=== PATIENT | male | born 1935 | race Caucasian/White ===

== ENCOUNTER → 2016-10-14 | Outpatient (CLI) | payer MEDICARE, OTHER ==
--- NOTE | 2016-10-14 09:58 | REP ---
Clinical: COPD. Technique: PA and lateral. Comparison: 03/02/2014. Findings: Mediastinum and cardiac silhouette are normal. Lung garcia demonstrate diffuse chronic interstitial changes consistent with COPD. By apical and left basilar scarring remains stable. No acute consolidation, effusion, or pneumothorax. Skeletal structures demonstrate osteopenia and degenerative changes. Impression: Chronic stable changes. No acute cardiopulmonary process appreciated. Signed by Omar Morrell MD 10/14/2016 09:50 A
== END ==
LOC: M SMT 09:13
PROVIDERS: ATTEND Internal Medicine Pulmonary Disease
DX: J44.9 Chronic obstructive pulmonary disease, unspecified (principal)

== ENCOUNTER → 2017-12-16 | Outpatient (CLI) | payer MEDICARE, OTHER ==
[~2017-12-16] MED LIST: GASTROGRAFIN SOLUTION 30ML (Q9963) As Ordered; ISOVUE-370 76% 100ML VIAL (Q9967) As Ordered
== END ==
LOC: M RAD 11:09
DX: K56.600 Partial intestinal obstruction, unspecified as to cause (principal)
CPT/HCPCS: Q9963

== ENCOUNTER → 2018-01-14 | Outpatient (CLI) | payer MEDICARE, OTHER | LOC: M EKG 08:30 | DX: Z01.818 Encounter for other preprocedural examination (principal); J44.9 Chronic obstructive pulmonary disease, unspecified; K21.9 Gastro-esophageal reflux disease without esophagitis; E78.00 Pure hypercholesterolemia, unspecified; R00.1 Bradycardia, unspecified | CPT/HCPCS: 93005 ==

== ENCOUNTER 2018-01-18 12:03 | Day surgery (SDC) | payer MEDICARE, OTHER ==
[~2018-01-18 12:03] MED LIST changes: -GASTROGRAFIN SOLUTION 30ML (Q9963) As Ordered; -ISOVUE-370 76% 100ML VIAL (Q9967) As Ordered; +LIDOCAINE 1% MDV 20ML VIAL SQ
[2018-01-18] MEDS ORDERED: LR 1,000 ML IV ×2 (13:00→18:30)
[2018-01-18] MEDS ORDERED: ROCURONIUM BROMIDE 50 MG/5 ML VIAL As Ordered ×2 (13:44→16:54)
[2018-01-18] MEDS ORDERED: LIDOCAINE 2% INJ 100 MG/5 ML SDV (FOR ANES.) As Ordered (13:44)
[2018-01-18] MEDS ORDERED: fentaNYL 100 MCG/2 ML INJECTION (J3010) As Ordered ×3 (13:44→18:04)
[2018-01-18] MEDS ORDERED: PROPOFOL 200 MG/20 ML VIAL As Ordered (13:44)
[2018-01-18] MEDS ORDERED: ceFAZolin 2 GM/D5W 50 ML IV BAG (J0690 PER 500MG) As Ordered (15:22)
[2018-01-18] MEDS: BUPIVACAINE/EPIN 0.25% 30 ML VIAL As Ordered (17:30)
[2018-01-18] MEDS ORDERED: ONDANSETRON 4MG/2ML VIAL (J2405) As Ordered (17:46)
[2018-01-18] MEDS: fentaNYL 100 MCG/2 ML INJECTION (J3010) IV ×4 (18:05→18:21)
[2018-01-18] MEDS ORDERED: ONDANSETRON 4MG/2ML VIAL (J2405) IV (18:30)
[2018-01-18] MEDS ORDERED: NORCO, ANEXSIA 5/325MG TABLET (HYDROcodone/ACETAMINOPHEN) PO (18:30)
[2018-01-18] MEDS: NORCO, ANEXSIA 5/325MG TABLET (HYDROcodone/ACETAMINOPHEN) PO (18:43)
== END 2018-01-18 20:16 | disposition home or self-care (01) ==
LOC: M SDC 12:03
DX: K40.20 Bilateral inguinal hernia, without obstruction or gangrene, not specified as recurrent (principal); I10 Essential (primary) hypertension; E78.5 Hyperlipidemia, unspecified; K21.9 Gastro-esophageal reflux disease without esophagitis; J44.9 Chronic obstructive pulmonary disease, unspecified; Z87.891 Personal history of nicotine dependence; Z79.82 Long term (current) use of aspirin; Z79.899 Other long term (current) drug therapy
CPT/HCPCS: 49650

== ENCOUNTER → 2018-05-13 | Outpatient (CLI) | payer MEDICARE, OTHER ==
[~2018-05-13] MED LIST changes: +ADVA115A INH; +ASPI81TA85 PO; +CETI10CH PO; +CLAR10CA3 PO; +DOCU100C16 PO; +EZET10TA PO; +FLOM0.4C39 PO; +FLUTISP NARES; +LEVO25TA5 PO; -LIDOCAINE 1% MDV 20ML VIAL SQ; +LISI10TA4 PO; +LUTE6TAB2 PO; +MAGN400C2 PO; +PRESCAP PO; +TYLE325C PO; +VENTAER INH; +VITA-176 PO; +[UNRECOGNIZED DRUG - CODE] OU
--- NOTE | 2018-05-13 09:32 | REP ---
Chest two views HISTORY: COPD Comparison: 10/14/2016 A diffuse increase in interstitial markings is present in the lungs consistent with chronic interstitial fibrosis. Scarring is present in the lung apices and left lower lobe.. Bilateral apical pleural thickening is present. The heart is normal in size. The pulmonary vasculature is normal in appearance. The bony structure is intact. IMPRESSION: Chronic interstitial fibrosis. Electronically Signed by Mj Lazcano MD 05/13/2018 09:23 A
== END ==
LOC: M SMT 08:59
PROVIDERS: ATTEND Internal Medicine Pulmonary Disease
DX: J44.9 Chronic obstructive pulmonary disease, unspecified (principal); J84.10 Pulmonary fibrosis, unspecified

== ENCOUNTER 2019-07-08 09:35 | Emergency (ER) | payer MEDICARE, OTHER ==
[~2019-07-08] VITALS: Ht 172.7 cm; Wt 70.3 kg
[~2019-07-08 09:35] MED LIST changes: -EZET10TA PO; +EZET10TA21 PO
[2019-07-08] MEDS ORDERED: ALL10TAB29 (10:00)
[2019-07-08] MEDS ORDERED: SYNT75TA (10:00)
[2019-07-08 10:39] LABS: BASO % 0.4 % (0.0-1.0); EOS # 0.1 10^3/uL (0.0-0.5); EOS % 1.2 % (0.0-3.0); HEMATOCRIT 43.7 % (42.0-52.0); HEMOGLOBIN 14.6 g/dl (13.5-17.5); LYMPH # 2.6 10^3/uL (1.5-5.0); LYMPH % 26.3 % (24.0-44.0); MEAN CORPUSCULAR HEMOGLOBIN 27.8 pg (27.0-33.0); MEAN CORPUSCULAR HGB CONC 33.4 g/dl (32.0-36.5); MEAN CORPUSCULAR VOLUME 83.2 fl (80.0-96.0); MONO # 0.6 10^3/uL (0.0-0.8); MONO % 6.4 % (0.0-5.0); NEUTROPHILS # 6.5 10^3/uL (1.5-8.5); NEUTROPHILS % 65.2 % (36.0-66.0); PLATELET COUNT, AUTOMATED 308 10^3/uL (150-450); RED BLOOD COUNT 5.25 10^6/uL (4.30-6.10); WHITE BLOOD COUNT 9.9 10^3/uL (4.0-10.0)
--- NOTE | 2019-07-08 10:50 | REP ---
Clinical: Cough. History of COPD. Technique: PA and lateral. Comparison: 05/13/2018. Findings: Mediastinum and cardiac silhouette are stable. Chronic interstitial changes consistent with COPD along with biapical scarring and bibasilar scarring (left greater than right) are essentially unchanged. No obvious acute consolidation or effusion. Skeletal structures demonstrate age-related osteopenia and degenerative changes. Impression: Chronic changes. No obvious acute consolidation or effusion. Electronically Signed by Omar Morrell MD 07/08/2019 10:41 A
[2019-07-08 11:02] LABS: BLOOD UREA NITROGEN 11 MG/DL (7-18); CALCIUM LEVEL 8.9 MG/DL (8.8-10.2); CARBON DIOXIDE LEVEL 26 MEQ/L (21-32); CHLORIDE LEVEL 105 MEQ/L (98-107); GLOMERULAR FILTRATION RATE > 60.0 (>35); GLUCOSE, FASTING 101 MG/DL (70-100); POTASSIUM SERUM 4.3 MEQ/L (3.5-5.1); SODIUM LEVEL 138 MEQ/L (136-145)
[2019-07-08 11:04] LABS: INFLUENZA A AMPLIFICATION NEGATIVE (NEGATIVE); INFLUENZA B AMPLIFICATION NEGATIVE (NEGATIVE)
[2019-07-08] MEDS ORDERED: MUCI600T31 PO (11:14)
[2019-07-08] MEDS ORDERED: BENZ200C70 PO (11:14)
[2019-07-08 11:23] VITALS: BP 110/57
== END 2019-07-08 11:42 | disposition home or self-care (01) ==
LOC: M ED 09:35
DX: T58.11XA Toxic effect of carbon monoxide from utility gas, accidental (unintentional), initial encounter (principal); Y92.9 Unspecified place or not applicable; Y93.9 Activity, unspecified; J06.9 Acute upper respiratory infection, unspecified; B34.9 Viral infection, unspecified; J44.9 Chronic obstructive pulmonary disease, unspecified; E78.5 Hyperlipidemia, unspecified; N40.0 Benign prostatic hyperplasia without lower urinary tract symptoms; E03.9 Hypothyroidism, unspecified; Z79.82 Long term (current) use of aspirin; Z79.899 Other long term (current) drug therapy; Z88.7 Allergy status to serum and vaccine

== ENCOUNTER → 2019-12-12 | Outpatient (CLI) | payer MEDICARE, OTHER ==
[~2019-12-12] MED LIST changes: -ASPI81TA85 PO; +ASPI81TA86 PO; +BENZ200C70 PO; +CETI-24; +MUCI600T31 PO; +SYNT75TA
--- NOTE | 2019-12-12 11:19 | REP ---
Clinical: COPD. Technique: PA and lateral. Comparison: 07/08/2019, 03/02/2014. Findings: Mediastinum and cardiac silhouette are normal. Chronic interstitial changes and biapical scarring again identified and relatively stable. No acute consolidation, effusion, or pneumothorax. Skeletal structures demonstrate age-related osteopenia and degenerative changes. Impression: Chronic stable changes. No acute process appreciated. Electronically Signed by Omar Morrell MD 12/12/2019 11:11 A
== END ==
LOC: M WUC 10:48
PROVIDERS: ATTEND Internal Medicine Pulmonary Disease
DX: J44.9 Chronic obstructive pulmonary disease, unspecified (principal)

== ENCOUNTER → 2020-12-31 | Outpatient (REF) | payer MEDICARE, OTHER ==
[~2020-12-31] MED LIST changes: +LISI10TA22 PO; -LISI10TA4 PO
== END ==
LOC: M LAB REF 13:29
PROVIDERS: ATTEND Internal Medicine Nephrology
DX: E83.42 Hypomagnesemia (principal)

== ENCOUNTER → 2021-01-14 | Outpatient (CLI) | payer MEDICARE, OTHER ==
--- NOTE | 2021-01-14 17:53 | REP ---
INDICATION: CKD 3A, UTI SYMPTOMS COMPARISON: None TECHNIQUE: Real time carbajal scale ultrasound examination using curved array transducer. FINDINGS: Kidneys are essentially normal in contour, size, echogenicity, and reniform shape. No hydronephrosis, nephrolithiasis, cystic or renal mass lesion. Right kidney measures 9.5 x 4.6 x 4.2 cm. Left kidney measures 10.5 x 4.5 x 5.5 cm. IMPRESSION: 1. Normal age-appropriate renal ultrasound. <Electronically signed by Omar Morrell > 01/14/21 [id number]
--- NOTE | 2021-01-14 17:56 | REP ---
INDICATION: CKD 3A, UTI SYMPTOMS COMPARISON: None TECHNIQUE: Real time B-mode ultrasound examination using curved array transducer. FINDINGS: Bladder is normal in appearance without wall thickening or mass lesion. Heterogeneous prostate measures 4.7 x 5.1 x 4.6 cm. Prevoid bladder measures 5.2 x 6.3 x 3.5 cm (75 cc). Postvoid bladder measures 3.9 x 4.1 x 2.3 cm (24 cc). Postvoid residual: 32% IMPRESSION: 1. Abnormally elevated postvoid residual volume with incomplete distension may be related to chronic outlet obstruction. 2. Enlarged prostate gland. <Electronically signed by Omar Morrell > 01/14/21 [id number]
== END ==
LOC: M RAD 16:45
PROVIDERS: ATTEND Internal Medicine Nephrology
DX: N18.31 Chronic kidney disease, stage 3a (principal); N40.1 Benign prostatic hyperplasia with lower urinary tract symptoms; R39.198 Other difficulties with micturition

== ENCOUNTER → 2021-04-02 | Outpatient (REF) | payer MEDICARE, OTHER | LOC: M LAB REF 13:12 | PROVIDERS: ATTEND Internal Medicine Nephrology | DX: N18.31 Chronic kidney disease, stage 3a (principal); E83.42 Hypomagnesemia ==

== ENCOUNTER → 2022-06-04 | Outpatient (CLI) | payer MEDICARE, OTHER ==
[~2022-06-04] MED LIST changes: +ACET500P3 PO; +CHLO1TAB35 PO; +COLA100C5 PO; +ECOT81TA5 PO; +FLUTISP; +LACT20EL PO; +LIDO1ADH20 TP; +LISI5TAB11 PO; +LOPE1CAP5 PO; +MAGN250T9 PO; +NOXI1TAB PO; +OMEP-173 PO; +SYST1SOL OP; +VANI1LOT
== END ==
LOC: M PLARAD 10:59
PROVIDERS: ATTEND Physician Assistant
DX: C34.32 Malignant neoplasm of lower lobe, left bronchus or lung (principal); G93.0 Cerebral cysts; I65.23 Occlusion and stenosis of bilateral carotid arteries; R59.0 Localized enlarged lymph nodes; J90 Pleural effusion, not elsewhere classified; I31.39 Other pericardial effusion (noninflammatory); I70.0 Atherosclerosis of aorta; I25.10 Atherosclerotic heart disease of native coronary artery without angina pectoris; C78.7 Secondary malignant neoplasm of liver and intrahepatic bile duct; K80.20 Calculus of gallbladder without cholecystitis without obstruction; Z95.820 Peripheral vascular angioplasty status with implants and grafts; C79.51 Secondary malignant neoplasm of bone
CPT/HCPCS: 78815; A9552

== ENCOUNTER 2022-06-20 11:23 | Emergency (ER) | payer MEDICARE, OTHER ==
[~2022-06-20] VITALS: Ht 172.7 cm; Wt 57.3 kg
[2022-06-20] MEDS ORDERED: SYSTANE (11:44)
[2022-06-20 12:30] LABS: BASO # 0.1 10^3/uL (0.0-0.2); BASO % 0.5 % (0.0-1.0); EOS # 0.3 10^3/uL (0.0-0.5); EOS % 2.3 % (0.0-3.0); HEMATOCRIT 37.9 % (42.0-52.0); HEMOGLOBIN 12.2 g/dl (13.5-17.5); LYMPH # 1.6 10^3/uL (1.5-5.0); LYMPH % 12.9 % (24.0-44.0); MEAN CORPUSCULAR HGB CONC 32.2 g/dl (32.0-36.5); MEAN CORPUSCULAR VOLUME 80.8 fl (80.0-96.0); MONO # 1.1 10^3/uL (0.0-0.8); MONO % 9.2 % (2.0-8.0); NEUTROPHILS # 9.2 10^3/uL (1.5-8.5); NEUTROPHILS % 74.5 % (36.0-66.0); PLATELET COUNT, AUTOMATED 327 10^3/uL (150-450); RED BLOOD COUNT 4.69 10^6/uL (4.30-6.10); WHITE BLOOD COUNT 12.4 10^3/uL (4.0-10.0)
[2022-06-20 13:02] LABS: LIPASE 31 U/L (12-53)
[2022-06-20 13:03] LABS: BILIRUBIN,DIRECT 0.2 MG/DL (<0.4)
[2022-06-20 13:04] LABS: ALBUMIN 3.4 G/DL (3.2-5.2); ALKALINE PHOSPHATASE 166 U/L (46-116); ALT/SGPT 12 U/L (7.0-40); AST/SGOT 23 U/L (<34); BILIRUBIN,TOTAL 0.6 MG/DL (0.3-1.2); BLOOD UREA NITROGEN 17 MG/DL (9-23); CALCIUM LEVEL 9.6 MG/DL (8.3-10.6); CARBON DIOXIDE LEVEL 28 MMOL/L (20-31); CHLORIDE LEVEL 99 MMOL/L (98-107); CREATININE FOR GFR 0.93 MG/DL (0.70-1.30); GLOMERULAR FILTRATION RATE > 60.0 (>35); GLUCOSE, FASTING 101 MG/DL (74-106); POTASSIUM SERUM 4.5 MMOL/L (3.5-5.1); SODIUM LEVEL 134 MMOL/L (136-145); TOTAL PROTEIN 6.6 G/DL (5.7-8.2)
[2022-06-20 13:27] VITALS: BP 133/69
== END 2022-06-20 13:31 | disposition home or self-care (01) ==
LOC: M ED 11:23
DX: K80.20 Calculus of gallbladder without cholecystitis without obstruction (principal); C78.7 Secondary malignant neoplasm of liver and intrahepatic bile duct; C79.51 Secondary malignant neoplasm of bone; C34.90 Malignant neoplasm of unspecified part of unspecified bronchus or lung; I10 Essential (primary) hypertension; Z88.7 Allergy status to serum and vaccine; Z79.51 Long term (current) use of inhaled steroids; Z79.82 Long term (current) use of aspirin; Z79.899 Other long term (current) drug therapy

== ENCOUNTER → 2022-07-01 | Outpatient (CLI) | payer MEDICARE, OTHER ==
[~2022-07-01] MED LIST changes: +DEXA4TA PO; +SYSTANE
== END ==
LOC: M ONCR 13:27
PROVIDERS: ATTEND General Practice
DX: C34.32 Malignant neoplasm of lower lobe, left bronchus or lung (principal); C79.51 Secondary malignant neoplasm of bone; J44.9 Chronic obstructive pulmonary disease, unspecified; Z79.51 Long term (current) use of inhaled steroids; Z79.82 Long term (current) use of aspirin; Z79.890 Hormone replacement therapy; Z79.899 Other long term (current) drug therapy; Z88.7 Allergy status to serum and vaccine

== ENCOUNTER → 2022-07-07 | Outpatient (CLI) | payer MEDICARE, OTHER | LOC: M LABSMTC 10:20 | PROVIDERS: ATTEND Anesthesiology | DX: Z01.812 Encounter for preprocedural laboratory examination (principal); Z11.52 Encounter for screening for COVID-19 ==

== ENCOUNTER → 2022-07-09 | Outpatient (CLI) | payer MEDICARE, OTHER ==
[~2022-07-09] MED LIST changes: +LIDOCAINE 1% MDV 20ML VIAL As Ordered ONE; +MIDAZOLAM INJ 2MG/2ML VIAL As Ordered ONE; +NS 1,000 ML IV SCH; +ceFAZolin 2 GM/D5W 50 ML IV BAG As Ordered ONE; +ceFAZolin SOD 2 GM in IV 1 EA IV ONE; +diphenhydrAMINE 50MG/ML VIAL As Ordered ONE; +fentaNYL 100 MCG/2 ML INJECTION As Ordered ONE
[2022-07-09 12:54] VITALS: BP 175/81
== END ==
LOC: M IRPRO 11:13
PROVIDERS: ATTEND Internal Medicine Medical Oncology
DX: C34.90 Malignant neoplasm of unspecified part of unspecified bronchus or lung (principal)
CPT/HCPCS: 36561; J0690; J1642; J1644; J2250; J3010

== ENCOUNTER → 2022-07-22 | Outpatient (RCR) | payer MEDICARE, OTHER ==
[~2022-07-22] MED LIST changes: +BACI1CAP PO; +CEFD300C41 PO; -CETI-24; +CETI-24 PO; +D 101000 PO; +DOXY-444 PO; -LIDOCAINE 1% MDV 20ML VIAL As Ordered ONE; +MED REC COMMENT; +MELO15TA28 PO; -MIDAZOLAM INJ 2MG/2ML VIAL As Ordered ONE; +NAPR220C14 PO; -NS 1,000 ML IV SCH; -SYNT75TA; +SYNT75TA PO; -VANI1LOT; +VANI1LOT TOP; +VITAD400CA FT; -ceFAZolin 2 GM/D5W 50 ML IV BAG As Ordered ONE; -ceFAZolin SOD 2 GM in IV 1 EA IV ONE; -diphenhydrAMINE 50MG/ML VIAL As Ordered ONE; -fentaNYL 100 MCG/2 ML INJECTION As Ordered ONE
== END ==
LOC: M ONCR 07-04 14:13
PROVIDERS: ATTEND General Practice
DX: C79.51 Secondary malignant neoplasm of bone (principal)

== ENCOUNTER 2022-07-24 12:05 | Inpatient (IN) | payer MEDICARE, OTHER ==
[~2022-07-24] VITALS: Ht 172.7 cm; Wt 55.0 kg
[~2022-07-24 12:05] MED LIST changes: -BACI1CAP PO; -CEFD300C41 PO; -D 101000 PO; -DOXY-444 PO; -MED REC COMMENT; -MELO15TA28 PO; -VITAD400CA FT
[2022-07-24] MEDS ORDERED: MELO15TA28 PO (12:38)
[2022-07-24 14:49] LABS: BASO % 0.3 % (0.0-1.0); EOS # 0.2 10^3/uL (0.0-0.5); EOS % 1.7 % (0.0-3.0); HEMOGLOBIN 12.2 g/dl (13.5-17.5); LYMPH # 0.6 10^3/uL (1.5-5.0); MEAN CORPUSCULAR HEMOGLOBIN 26.9 pg (27.0-33.0); MEAN CORPUSCULAR HGB CONC 33.9 g/dl (32.0-36.5); MEAN CORPUSCULAR VOLUME 79.3 fl (80.0-96.0); MONO # 0.2 10^3/uL (0.0-0.8); MONO % 1.8 % (2.0-8.0); NEUTROPHILS # 10.6 10^3/uL (1.5-8.5); NEUTROPHILS % 88.8 % (36.0-66.0); PLATELET COUNT, AUTOMATED 180 10^3/uL (150-450); RED BLOOD COUNT 4.54 10^6/uL (4.30-6.10); WHITE BLOOD COUNT 11.9 10^3/uL (4.0-10.0)
[2022-07-24 15:19] LABS: THYROID STIMULATING HORMONE 2.822 uIU/ML (0.55-4.78); THYROXINE (T4) 14.1 UG/DL (4.5-10.9)
[2022-07-24 15:20] LABS: ALBUMIN 2.7 G/DL (3.2-5.2); ALKALINE PHOSPHATASE 156 U/L (46-116); ALT/SGPT 21 U/L (7.0-40); AST/SGOT 28 U/L (<34); BILIRUBIN,DIRECT 0.3 MG/DL (<0.4); BLOOD UREA NITROGEN 24 MG/DL (9-23); CALCIUM LEVEL 7.6 MG/DL (8.3-10.6); CARBON DIOXIDE LEVEL 26 MMOL/L (20-31); CHLORIDE LEVEL 101 MMOL/L (98-107); CREATININE FOR GFR 0.59 MG/DL (0.70-1.30); GLOMERULAR FILTRATION RATE > 60.0 (>35); GLUCOSE, FASTING 90 MG/DL (74-106); POTASSIUM SERUM 3.8 MMOL/L (3.5-5.1); SODIUM LEVEL 133 MMOL/L (136-145)
[2022-07-24 15:41] LABS: RSV AMPLIFICATION NEGATIVE (NEGATIVE)
[2022-07-24] MEDS ORDERED: IPRATROPIUM 0.5MG/ALBUTEROL 2.5MG INH SOL UD 3ML (DUONEB) NEB PRN (18:00)
[2022-07-24] MEDS ORDERED: METOPROLOL TART 25 MG TABLET PO SCH (18:05)
[2022-07-24] MEDS ORDERED: PERCOCET 5MG/325MG TAB PO PRN (18:05)
[2022-07-24] MEDS ORDERED: BISACODYL 5MG TAB PO PRN (18:10)
[2022-07-24] MEDS ORDERED: SENOKOT S TAB PO PRN (18:10)
[2022-07-24] MEDS ORDERED: oxyCODONE 5MG TAB PO PRN ×2 (18:10)
[2022-07-24] MEDS ORDERED: MOM 30ML SUSPENSION UDC PO PRN (18:10)
[2022-07-24] MEDS ORDERED: MIRALAX *UNIT DOSE* 17GM PACKET PO PRN (18:10)
[2022-07-24] MEDS ORDERED: VITAD400CA FT (18:47)
[2022-07-24] MEDS ORDERED: D 101000 PO (18:47)
[2022-07-24] MEDS ORDERED: MED REC COMMENT (18:51)
[2022-07-24] MEDS ORDERED: HOME MED LIST COMPLETE! XX SCH (18:55)
[2022-07-24] MEDS ORDERED: KETOROLAC 30 MG/ML 1ML VIAL IV SCH (19:00)
[2022-07-24] MEDS ORDERED: cefTRIAXone SOD 2 GM in D5W MINI-BAG PLUS 50 ML IV SCH (19:00)
[2022-07-24] MEDS: LACTOBACILLUS ACIDOPHILUS CAP (BACID) PO SCH ×2 (20:15→21:11)
[2022-07-24] MEDS: NS 1,000 ML IV SCH (20:16)
[2022-07-24] MEDS: KETOROLAC 30 MG/ML 1ML VIAL IV SCH (20:17)
[2022-07-24] MEDS: DOXYCYCLINE HYCLATE 100MG TABLET PO SCH (20:17)
[2022-07-24 20:40] VITALS: BP 149/79
[2022-07-24] MEDS: IPRATROPIUM 0.5MG/ALBUTEROL 2.5MG INH SOL UD 3ML (DUONEB) NEB SCH (21:05)
[2022-07-24] MEDS: ACETAMINOPHEN 500 MG TAB PO SCH (21:12)
[2022-07-25] MEDS: KETOROLAC 30 MG/ML 1ML VIAL IV SCH ×3 (01:55→12:12)
[2022-07-25] MEDS: IPRATROPIUM 0.5MG/ALBUTEROL 2.5MG INH SOL UD 3ML (DUONEB) NEB SCH ×3 (07:19→15:10)
[2022-07-25] MEDS ORDERED: METOPROLOL TART 50 MG TAB PO ONE (08:25)
[2022-07-25 08:44] LABS: BASO % 0.4 % (0.0-1.0); EOS # 0.3 10^3/uL (0.0-0.5); EOS % 3.2 % (0.0-3.0); HEMATOCRIT 37.5 % (42.0-52.0); LYMPH # 0.6 10^3/uL (1.5-5.0); LYMPH % 5.4 % (24.0-44.0); MEAN CORPUSCULAR HEMOGLOBIN 26.1 pg (27.0-33.0); MEAN CORPUSCULAR VOLUME 81.5 fl (80.0-96.0); MONO # 0.1 10^3/uL (0.0-0.8); MONO % 0.9 % (2.0-8.0); NEUTROPHILS # 9.2 10^3/uL (1.5-8.5); NEUTROPHILS % 89.2 % (36.0-66.0); PLATELET COUNT, AUTOMATED 159 10^3/uL (150-450); WHITE BLOOD COUNT 10.3 10^3/uL (4.0-10.0)
[2022-07-25] MEDS: LACTOBACILLUS ACIDOPHILUS CAP (BACID) PO SCH ×2 (08:57→12:13)
[2022-07-25] MEDS: ACETAMINOPHEN 500 MG TAB PO SCH (08:58)
[2022-07-25] MEDS: DOXYCYCLINE HYCLATE 100MG TABLET PO SCH (08:58)
[2022-07-25 08:59] VITALS: BP 119/64
[2022-07-25 09:27] LABS: BLOOD UREA NITROGEN 29 MG/DL (9-23); CALCIUM LEVEL 7.4 MG/DL (8.3-10.6); CARBON DIOXIDE LEVEL 25 MMOL/L (20-31); CHLORIDE LEVEL 103 MMOL/L (98-107); CREATININE FOR GFR 0.64 MG/DL (0.70-1.30); GLOMERULAR FILTRATION RATE > 60.0 (>35); GLUCOSE, FASTING 115 MG/DL (74-106); POTASSIUM SERUM 3.7 MMOL/L (3.5-5.1); SODIUM LEVEL 136 MMOL/L (136-145)
[2022-07-25] MEDS ORDERED: DOXY-444 PO (10:54)
[2022-07-25] MEDS ORDERED: CEFD300C41 PO (10:54)
[2022-07-25] MEDS ORDERED: BACI1CAP PO (10:54)
[2022-07-25] MEDS: NS 1,000 ML IV SCH (12:12)
== END 2022-07-25 15:29 | DRG 189 ==
LOC: EDBD 12:05 → M ED 12:05 → M ED INP 17:54 → ENRESERV 19:53 → M MSPAV 20:40
PROVIDERS: ADMIT General Practice; ATTEND General Practice
DX: J96.01 Acute respiratory failure with hypoxia (principal); J18.9 Pneumonia, unspecified organism; J44.0 Chronic obstructive pulmonary disease with (acute) lower respiratory infection; E46 Unspecified protein-calorie malnutrition; C34.32 Malignant neoplasm of lower lobe, left bronchus or lung; C78.7 Secondary malignant neoplasm of liver and intrahepatic bile duct; C79.72 Secondary malignant neoplasm of left adrenal gland; M84.48XA Pathological fracture, other site, initial encounter for fracture; R64 Cachexia; Z87.891 Personal history of nicotine dependence; Z92.3 Personal history of irradiation; Z92.21 Personal history of antineoplastic chemotherapy; S70.01XA Contusion of right hip, initial encounter; W01.0XXA Fall on same level from slipping, tripping and stumbling without subsequent striking against object, initial encounter; Y92.009 Unspecified place in unspecified non-institutional (private) residence as the place of occurrence of the external cause; I10 Essential (primary) hypertension; Z74.1 Need for assistance with personal care; Z74.09 Other reduced mobility; Z20.822 Contact with and (suspected) exposure to COVID-19; Z79.82 Long term (current) use of aspirin; Z79.899 Other long term (current) drug therapy; Z88.8 Allergy status to other drugs, medicaments and biological substances

== ENCOUNTER 2022-07-25 12:34 | Inpatient (IN) | payer MEDICARE, OTHER ==
[2022-07-24 16:07] VITALS: BP 146/60
[~2022-07-25] VITALS: Ht 172.7 cm; Wt 55.0 kg
[~2022-07-25 12:34] MED LIST changes: +BACI1CAP PO; +CEFD300C41 PO; +D 101000 PO; +DOXY-444 PO; +MED REC COMMENT; +MELO15TA28 PO; +VITAD400CA FT
[2022-07-25] MEDS ORDERED: ONDANSETRON 4MG TAB PO PRN (15:45)
[2022-07-25] MEDS ORDERED: BISACODYL 10MG SUPP PR PRN (15:45)
[2022-07-25] MEDS ORDERED: ALBUTEROL 90 MCG/ACT 8GM HFA INHALER INH PRN (15:45)
[2022-07-25] MEDS: REMEDY PHYTOPLEX Z-GUARD PASTE 113GM TUBE (FROM STOREROOM PRODUCT) TOP SCH ×2 (16:00→21:00)
[2022-07-25 16:31] VITALS: BP 164/82
[2022-07-25] MEDS: SUCRALFATE 1 GM TAB PO SCH ×2 (16:58→22:04)
[2022-07-25] MEDS: ACETAMINOPHEN 500 MG TAB PO SCH ×2 (16:58→22:05)
[2022-07-25] MEDS: LACTOBACILLUS ACIDOPHILUS CAP (BACID) PO SCH ×2 (17:39→22:04)
[2022-07-25] MEDS: **hydrALAZINE HCL** 25 MG TAB PO SCH (17:39)
[2022-07-25] MEDS: FLUTICASONE HFA 110MCG 12GM INHALER (FLOVENT) INH SCH (19:38)
[2022-07-25] MEDS: COMBIVENT RESPIMAT 100-20MCG INHALER 4GM INH SCH (19:39)
[2022-07-25 20:00] VITALS: BP 130/60
[2022-07-25] MEDS: DOXYCYCLINE HYCLATE 100MG TABLET PO SCH (22:03)
[2022-07-25] MEDS: METOPROLOL TART 25 MG TABLET PO SCH (22:04)
[2022-07-25] MEDS: DOCUSATE SODIUM 100MG CAPSULE PO SCH (22:04)
[2022-07-25] MEDS: SENNA 8.6 MG TAB (SENOKOT) PO SCH (22:04)
[2022-07-26] MEDS: **hydrALAZINE HCL** 25 MG TAB PO SCH ×4 (00:48→17:12)
[2022-07-26] MEDS: LEVOTHYROXINE 75MCG TABLET (0.075MG) PO SCH (05:43)
[2022-07-26 06:00] VITALS: BP 156/82
[2022-07-26 07:24] LABS: BASO % 0.4 % (0.0-1.0); EOS # 0.2 10^3/uL (0.0-0.5); EOS % 2.3 % (0.0-3.0); HEMATOCRIT 36.1 % (42.0-52.0); HEMOGLOBIN 11.8 g/dl (13.5-17.5); LYMPH # 0.4 10^3/uL (1.5-5.0); MEAN CORPUSCULAR HEMOGLOBIN 26.3 pg (27.0-33.0); MEAN CORPUSCULAR HGB CONC 32.7 g/dl (32.0-36.5); MEAN CORPUSCULAR VOLUME 80.6 fl (80.0-96.0); MONO # 0.1 10^3/uL (0.0-0.8); MONO % 0.8 % (2.0-8.0); NEUTROPHILS # 9.6 10^3/uL (1.5-8.5); NEUTROPHILS % 91.6 % (36.0-66.0); PLATELET COUNT, AUTOMATED 153 10^3/uL (150-450); RED BLOOD COUNT 4.48 10^6/uL (4.30-6.10); WHITE BLOOD COUNT 10.5 10^3/uL (4.0-10.0)
[2022-07-26] MEDS: FLUTICASONE HFA 110MCG 12GM INHALER (FLOVENT) INH SCH ×2 (07:55→19:46)
[2022-07-26] MEDS: COMBIVENT RESPIMAT 100-20MCG INHALER 4GM INH SCH ×4 (07:55→19:46)
[2022-07-26 07:58] LABS: ALBUMIN 2.5 G/DL (3.2-5.2); ALKALINE PHOSPHATASE 146 U/L (46-116); ALT/SGPT 14 U/L (7.0-40); AST/SGOT 23 U/L (<34); BILIRUBIN,TOTAL 0.6 MG/DL (0.3-1.2); BLOOD UREA NITROGEN 31 MG/DL (9-23); CALCIUM LEVEL 7.4 MG/DL (8.3-10.6); CARBON DIOXIDE LEVEL 26 MMOL/L (20-31); CHLORIDE LEVEL 104 MMOL/L (98-107); CREATININE FOR GFR 0.58 MG/DL (0.70-1.30); GLOMERULAR FILTRATION RATE > 60.0 (>35); GLUCOSE, FASTING 102 MG/DL (74-106); POTASSIUM SERUM 3.8 MMOL/L (3.5-5.1); SODIUM LEVEL 137 MMOL/L (136-145); TOTAL PROTEIN 4.8 G/DL (5.7-8.2)
[2022-07-26] MEDS: MAGNESIUM OXIDE 400MG TAB (MAG-OX) PO SCH (08:36)
[2022-07-26] MEDS: LACTOBACILLUS ACIDOPHILUS CAP (BACID) PO SCH ×4 (08:36→22:17)
[2022-07-26] MEDS: SUCRALFATE 1 GM TAB PO SCH ×4 (08:36→22:17)
[2022-07-26] MEDS: CEFDINIR 300 MG CAP (OMNICEF) PO SCH (08:36)
[2022-07-26] MEDS: ASPIRIN 81MG ENTERIC TABLET PO SCH (08:36)
[2022-07-26] MEDS: EZETIMIBE 10MG TABLET (ZETIA) PO SCH (08:36)
[2022-07-26] MEDS: TAMSULOSIN 0.4 MG CAP PO SCH (08:37)
[2022-07-26] MEDS: ACETAMINOPHEN 500 MG TAB PO SCH ×3 (08:37→21:00)
[2022-07-26] MEDS: DOCUSATE SODIUM 100MG CAPSULE PO SCH ×3 (08:37→22:17)
[2022-07-26] MEDS: DOXYCYCLINE HYCLATE 100MG TABLET PO SCH ×2 (08:37→22:17)
[2022-07-26] MEDS: CETIRIZINE (ZyrTEC) 10 MG TAB PO SCH (08:37)
[2022-07-26] MEDS: METOPROLOL TART 25 MG TABLET PO SCH ×2 (08:38→22:17)
[2022-07-26] MEDS: OMEPRAZOLE 20MG CAP PO SCH (08:38)
[2022-07-26] MEDS: MELOXICAM (MOBIC) 7.5 MG TAB PO SCH (08:39)
[2022-07-26] MEDS: REMEDY PHYTOPLEX Z-GUARD PASTE 113GM TUBE (FROM STOREROOM PRODUCT) TOP SCH ×3 (08:39→21:00)
[2022-07-26 11:34] VITALS: BP 124/62
[2022-07-26 14:00] VITALS: BP 128/68
[2022-07-26 20:00] VITALS: BP 158/80
[2022-07-26] MEDS: SENNA 8.6 MG TAB (SENOKOT) PO SCH (22:17)
[2022-07-27] MEDS: **hydrALAZINE HCL** 25 MG TAB PO SCH ×4 (00:06→17:14)
[2022-07-27] MEDS: LEVOTHYROXINE 75MCG TABLET (0.075MG) PO SCH (05:33)
[2022-07-27 06:00] VITALS: BP 136/58
[2022-07-27] MEDS: COMBIVENT RESPIMAT 100-20MCG INHALER 4GM INH SCH ×4 (07:22→20:11)
[2022-07-27] MEDS: FLUTICASONE HFA 110MCG 12GM INHALER (FLOVENT) INH SCH ×2 (07:23→20:11)
[2022-07-27] MEDS: ASPIRIN 81MG ENTERIC TABLET PO SCH (08:13)
[2022-07-27] MEDS: CETIRIZINE (ZyrTEC) 10 MG TAB PO SCH (08:13)
[2022-07-27] MEDS: TAMSULOSIN 0.4 MG CAP PO SCH (08:13)
[2022-07-27] MEDS: DOCUSATE SODIUM 100MG CAPSULE PO SCH ×2 (08:14→20:41)
[2022-07-27] MEDS: LACTOBACILLUS ACIDOPHILUS CAP (BACID) PO SCH ×4 (08:14→20:42)
[2022-07-27] MEDS: CEFDINIR 300 MG CAP (OMNICEF) PO SCH (08:14)
[2022-07-27] MEDS: MELOXICAM (MOBIC) 7.5 MG TAB PO SCH (08:14)
[2022-07-27] MEDS: OMEPRAZOLE 20MG CAP PO SCH (08:14)
[2022-07-27] MEDS: DOXYCYCLINE HYCLATE 100MG TABLET PO SCH ×2 (08:14→20:42)
[2022-07-27] MEDS: EZETIMIBE 10MG TABLET (ZETIA) PO SCH (08:14)
[2022-07-27] MEDS: SUCRALFATE 1 GM TAB PO SCH ×4 (08:14→20:42)
[2022-07-27] MEDS: MAGNESIUM OXIDE 400MG TAB (MAG-OX) PO SCH (08:14)
[2022-07-27] MEDS: METOPROLOL TART 25 MG TABLET PO SCH ×2 (08:15→20:42)
[2022-07-27] MEDS: ACETAMINOPHEN 500 MG TAB PO SCH ×3 (08:15→20:41)
[2022-07-27] MEDS: REMEDY PHYTOPLEX Z-GUARD PASTE 113GM TUBE (FROM STOREROOM PRODUCT) TOP SCH ×3 (08:19→20:42)
[2022-07-27 09:49] LABS: BLOOD UREA NITROGEN 28 MG/DL (9-23); CALCIUM LEVEL 7.8 MG/DL (8.3-10.6); CARBON DIOXIDE LEVEL 24 MMOL/L (20-31); CHLORIDE LEVEL 103 MMOL/L (98-107); CK-MB VALUE MASS 3.1 NG/ML (<3.6); CREATININE FOR GFR 0.59 MG/DL (0.70-1.30); GLOMERULAR FILTRATION RATE > 60.0 (>35); GLUCOSE, FASTING 147 MG/DL (74-106); POTASSIUM SERUM 3.9 MMOL/L (3.5-5.1); SODIUM LEVEL 134 MMOL/L (136-145)
[2022-07-27 09:52] LABS: CPK CREATINE PHOSPHOKINASE 37 U/L (46-171); MB/CK RELATIVE INDEX 8.37 (< OR =4)
[2022-07-27] MEDS ORDERED: IPRATROPIUM 0.5MG/ALBUTEROL 2.5MG INH SOL UD 3ML (DUONEB) NEB ONE (10:00)
[2022-07-27] MEDS ORDERED: FUROSEMIDE 20MG/2ML VIAL IV ONE (10:15)
[2022-07-27] MEDS ORDERED: ENOXAPARIN 60MG/0.6ML SYRINGE (J1650 PER 10MG) SC SCH (11:00)
[2022-07-27] MEDS ORDERED: PRAVASTATIN 20 MG TAB PO ONE (11:00)
[2022-07-27 20:00] VITALS: BP 128/56
[2022-07-27] MEDS: SENNA 8.6 MG TAB (SENOKOT) PO SCH (20:41)
[2022-07-28] MEDS: **hydrALAZINE HCL** 25 MG TAB PO SCH ×4 (00:03→17:37)
[2022-07-28] MEDS: LEVOTHYROXINE 75MCG TABLET (0.075MG) PO SCH (05:11)
[2022-07-28 06:00] VITALS: BP 136/60
[2022-07-28] MEDS: SUCRALFATE 1 GM TAB PO SCH ×4 (07:30→21:51)
[2022-07-28] MEDS: COMBIVENT RESPIMAT 100-20MCG INHALER 4GM INH SCH ×4 (07:33→20:09)
[2022-07-28] MEDS: FLUTICASONE HFA 110MCG 12GM INHALER (FLOVENT) INH SCH ×2 (07:33→20:09)
[2022-07-28] MEDS: CEFDINIR 300 MG CAP (OMNICEF) PO SCH (09:50)
[2022-07-28] MEDS: MAGNESIUM OXIDE 400MG TAB (MAG-OX) PO SCH (09:50)
[2022-07-28] MEDS: OMEPRAZOLE 20MG CAP PO SCH (09:50)
[2022-07-28] MEDS: PRAVASTATIN 20 MG TAB PO SCH (09:50)
[2022-07-28] MEDS: DOCUSATE SODIUM 100MG CAPSULE PO SCH ×2 (09:51→21:51)
[2022-07-28] MEDS: LACTOBACILLUS ACIDOPHILUS CAP (BACID) PO SCH ×4 (09:51→21:51)
[2022-07-28] MEDS: MELOXICAM (MOBIC) 7.5 MG TAB PO SCH (09:51)
[2022-07-28] MEDS: ASPIRIN 81MG ENTERIC TABLET PO SCH (09:51)
[2022-07-28] MEDS: EZETIMIBE 10MG TABLET (ZETIA) PO SCH (09:51)
[2022-07-28] MEDS: ACETAMINOPHEN 500 MG TAB PO SCH ×3 (09:52→21:51)
[2022-07-28] MEDS: TAMSULOSIN 0.4 MG CAP PO SCH (09:52)
[2022-07-28] MEDS: CETIRIZINE (ZyrTEC) 10 MG TAB PO SCH (09:52)
[2022-07-28] MEDS: REMEDY PHYTOPLEX Z-GUARD PASTE 113GM TUBE (FROM STOREROOM PRODUCT) TOP SCH ×3 (09:53→21:00)
[2022-07-28] MEDS: METOPROLOL TART 25 MG TABLET PO SCH ×2 (09:53→21:52)
[2022-07-28] MEDS: DOXYCYCLINE HYCLATE 100MG TABLET PO SCH ×2 (09:53→21:51)
[2022-07-28 09:58] LABS: HEMATOCRIT 34.5 % (42.0-52.0); HEMOGLOBIN 11.1 g/dl (13.5-17.5); MEAN CORPUSCULAR HGB CONC 32.2 g/dl (32.0-36.5); MEAN CORPUSCULAR VOLUME 80.8 fl (80.0-96.0); PLATELET COUNT, AUTOMATED 151 10^3/uL (150-450); RED BLOOD COUNT 4.27 10^6/uL (4.30-6.10)
[2022-07-28 10:40] LABS: ANISOCYTOSIS 1+; ATYPICAL LYMPH 2 % (0-5); EOSINOPHILS 2 % (0-3); LYMPHOCYTES 19 % (16-44); METAMYELOCYTES 1 % (0-0); MONOCYTES 8 % (0-5); MYELOCYTES 2 % (0-0); NEUTROPHILS 63 % (28-66); PLATELET ESTIMATE NORMAL (NORMAL); POIKILOCYTOSIS 1+; POLYCHROMASIA 1+
[2022-07-28 10:47] LABS: BLOOD UREA NITROGEN 45 MG/DL (9-23); CARBON DIOXIDE LEVEL 25 MMOL/L (20-31); CHLORIDE LEVEL 103 MMOL/L (98-107); CREATININE FOR GFR 0.65 MG/DL (0.70-1.30); GLOMERULAR FILTRATION RATE > 60.0 (>35); GLUCOSE, FASTING 122 MG/DL (74-106); POTASSIUM SERUM 3.6 MMOL/L (3.5-5.1); SODIUM LEVEL 137 MMOL/L (136-145)
[2022-07-28] MEDS ORDERED: NS 1,000 ML IV ONE (13:05)
[2022-07-28 14:00] VITALS: BP 148/67
[2022-07-28] MEDS ORDERED: NS 500 ML IV ONE (14:25)
[2022-07-28 20:00] VITALS: BP 128/65
[2022-07-28 20:12] VITALS: O2SAT 90
[2022-07-28] MEDS: SENNA 8.6 MG TAB (SENOKOT) PO SCH (21:51)
[2022-07-28] MEDS: oxyCODONE 5MG TAB PO PRN (23:08)
[2022-07-29 00:23] VITALS: BP 118/62
[2022-07-29 05:58] VITALS: BP 133/84
[2022-07-29] MEDS: **hydrALAZINE HCL** 25 MG TAB PO SCH ×4 (05:59→18:03)
[2022-07-29] MEDS: LEVOTHYROXINE 75MCG TABLET (0.075MG) PO SCH (05:59)
[2022-07-29 07:22] LABS: BASO # 0.1 10^3/uL (0.0-0.2); BASO % 3.4 % (0.0-1.0); EOS # 0.3 10^3/uL (0.0-0.5); EOS % 19.5 % (0.0-3.0); HEMATOCRIT 30.7 % (42.0-52.0); HEMOGLOBIN 9.9 g/dl (13.5-17.5); LYMPH # 0.6 10^3/uL (1.5-5.0); LYMPH % 34.5 % (24.0-44.0); MEAN CORPUSCULAR HEMOGLOBIN 26.2 pg (27.0-33.0); MEAN CORPUSCULAR HGB CONC 32.2 g/dl (32.0-36.5); MEAN CORPUSCULAR VOLUME 81.2 fl (80.0-96.0); MONO # 0.3 10^3/uL (0.0-0.8); MONO % 19.5 % (2.0-8.0); NEUTROPHILS % 21.4 % (36.0-66.0); PLATELET COUNT, AUTOMATED 135 10^3/uL (150-450); RED BLOOD COUNT 3.78 10^6/uL (4.30-6.10); WHITE BLOOD COUNT 1.7 10^3/uL (4.0-10.0)
[2022-07-29] MEDS: SUCRALFATE 1 GM TAB PO SCH ×4 (07:30→21:00)
[2022-07-29] MEDS: FLUTICASONE HFA 110MCG 12GM INHALER (FLOVENT) INH SCH (07:37)
[2022-07-29] MEDS: COMBIVENT RESPIMAT 100-20MCG INHALER 4GM INH SCH ×5 (07:37→20:10)
[2022-07-29 07:50] LABS: BLOOD UREA NITROGEN 47 MG/DL (9-23); CARBON DIOXIDE LEVEL 24 MMOL/L (20-31); CHLORIDE LEVEL 106 MMOL/L (98-107); CREATININE FOR GFR 0.69 MG/DL (0.70-1.30); GLOMERULAR FILTRATION RATE > 60.0 (>35); GLUCOSE, FASTING 87 MG/DL (74-106); POTASSIUM SERUM 3.8 MMOL/L (3.5-5.1); SODIUM LEVEL 137 MMOL/L (136-145)
[2022-07-29 07:54] LABS: NEUTROPHILS # 0.4 10^3/uL (1.5-8.5)
[2022-07-29] MEDS: LACTOBACILLUS ACIDOPHILUS CAP (BACID) PO SCH ×4 (08:00→21:00)
[2022-07-29] MEDS: REMEDY PHYTOPLEX Z-GUARD PASTE 113GM TUBE (FROM STOREROOM PRODUCT) TOP SCH ×3 (08:53→21:00)
[2022-07-29] MEDS: ASPIRIN 81MG ENTERIC TABLET PO SCH (08:53)
[2022-07-29] MEDS: OMEPRAZOLE 20MG CAP PO SCH (08:54)
[2022-07-29] MEDS: CEFDINIR 300 MG CAP (OMNICEF) PO SCH (08:54)
[2022-07-29] MEDS: PRAVASTATIN 20 MG TAB PO SCH (08:54)
[2022-07-29] MEDS: CETIRIZINE (ZyrTEC) 10 MG TAB PO SCH (08:54)
[2022-07-29] MEDS: TAMSULOSIN 0.4 MG CAP PO SCH (08:54)
[2022-07-29] MEDS: ACETAMINOPHEN 500 MG TAB PO SCH ×3 (08:56→21:00)
[2022-07-29] MEDS: DOXYCYCLINE HYCLATE 100MG TABLET PO SCH ×2 (08:56→21:00)
[2022-07-29] MEDS: METOPROLOL TART 25 MG TABLET PO SCH ×2 (08:57→21:00)
[2022-07-29] MEDS: DOCUSATE SODIUM 100MG CAPSULE PO SCH ×2 (08:57→21:00)
[2022-07-29] MEDS: MAGNESIUM OXIDE 400MG TAB (MAG-OX) PO SCH (08:57)
[2022-07-29] MEDS: EZETIMIBE 10MG TABLET (ZETIA) PO SCH (08:58)
[2022-07-29] MEDS ORDERED: MELOXICAM (MOBIC) 7.5 MG TAB PO PRN (09:00)
[2022-07-29] MEDS ORDERED: NS 1,000 ML IV ONE (11:00)
[2022-07-29] MEDS: SODIUM CHLORIDE HYPERTONIC 3% 15ML NEB SOL INH SCH ×4 (11:57→20:10)
[2022-07-29] MEDS: FILGRASTIM 480 MCG/0.8 ML SYRINGE **SC ADMINISTRATION ONLY SC SCH (13:04)
[2022-07-29 14:00] VITALS: BP 130/62
[2022-07-29 20:00] VITALS: BP 154/56
[2022-07-29] MEDS: FLUTICASONE HFA 220 MCG 12 GM INHALER (FLOVENT) INH SCH (20:10)
[2022-07-29] MEDS: SENNA 8.6 MG TAB (SENOKOT) PO SCH (21:00)
[2022-07-30] MEDS: **hydrALAZINE HCL** 25 MG TAB PO SCH ×6 (00:32→23:57)
[2022-07-30] MEDS: SODIUM CHLORIDE HYPERTONIC 3% 15ML NEB SOL INH SCH ×6 (01:09→20:22)
[2022-07-30] MEDS: LEVOTHYROXINE 75MCG TABLET (0.075MG) PO SCH (05:48)
[2022-07-30] MEDS: oxyCODONE 5MG TAB PO PRN (05:49)
[2022-07-30 06:00] VITALS: BP 133/56
[2022-07-30] MEDS: SUCRALFATE 1 GM TAB PO SCH ×4 (07:30→20:07)
[2022-07-30] MEDS: FLUTICASONE HFA 220 MCG 12 GM INHALER (FLOVENT) INH SCH ×2 (07:32→20:22)
[2022-07-30] MEDS: COMBIVENT RESPIMAT 100-20MCG INHALER 4GM INH SCH ×4 (07:32→20:22)
[2022-07-30] MEDS: TIOTROPIUM INHALER/CAPSULE (SPIRIVA) INH SCH (07:32)
[2022-07-30 07:40] LABS: HEMATOCRIT 30.3 % (42.0-52.0); HEMOGLOBIN 10.1 g/dl (13.5-17.5); MEAN CORPUSCULAR HEMOGLOBIN 26.9 pg (27.0-33.0); MEAN CORPUSCULAR HGB CONC 33.3 g/dl (32.0-36.5); MEAN CORPUSCULAR VOLUME 80.6 fl (80.0-96.0); PLATELET COUNT, AUTOMATED 131 10^3/uL (150-450); RED BLOOD COUNT 3.76 10^6/uL (4.30-6.10); WHITE BLOOD COUNT 2.4 10^3/uL (4.0-10.0)
[2022-07-30] MEDS: LACTOBACILLUS ACIDOPHILUS CAP (BACID) PO SCH ×4 (08:00→20:08)
[2022-07-30 08:03] LABS: BLOOD UREA NITROGEN 49 MG/DL (9-23); CALCIUM LEVEL 8.6 MG/DL (8.3-10.6); CARBON DIOXIDE LEVEL 23 MMOL/L (20-31); CHLORIDE LEVEL 105 MMOL/L (98-107); CREATININE FOR GFR 0.74 MG/DL (0.70-1.30); GLOMERULAR FILTRATION RATE > 60.0 (>35); GLUCOSE, FASTING 96 MG/DL (74-106); POTASSIUM SERUM 3.6 MMOL/L (3.5-5.1); SODIUM LEVEL 136 MMOL/L (136-145)
[2022-07-30 08:49] LABS: ANISOCYTOSIS 1+; ATYPICAL LYMPH 4 % (0-5); EOSINOPHILS 9 % (0-3); LYMPHOCYTES 25 % (16-44); METAMYELOCYTES 1 % (0-0); MONOCYTES 11 % (0-5); NEUTROPHILS 49 % (28-66); PLATELET ESTIMATE DECREASED (NORMAL)
[2022-07-30] MEDS: OMEPRAZOLE 20MG CAP PO SCH (09:00)
[2022-07-30] MEDS: DOCUSATE SODIUM 100MG CAPSULE PO SCH ×2 (09:00→20:07)
[2022-07-30] MEDS: FILGRASTIM 480 MCG/0.8 ML SYRINGE **SC ADMINISTRATION ONLY SC SCH (09:00)
[2022-07-30] MEDS: REMEDY PHYTOPLEX Z-GUARD PASTE 113GM TUBE (FROM STOREROOM PRODUCT) TOP SCH ×3 (09:00→21:51)
[2022-07-30] MEDS: PRAVASTATIN 20 MG TAB PO SCH (09:00)
[2022-07-30] MEDS: ACETAMINOPHEN 500 MG TAB PO SCH ×4 (09:00→23:57)
[2022-07-30] MEDS: EZETIMIBE 10MG TABLET (ZETIA) PO SCH (09:00)
[2022-07-30] MEDS: CEFDINIR 300 MG CAP (OMNICEF) PO SCH (09:00)
[2022-07-30] MEDS: CETIRIZINE (ZyrTEC) 10 MG TAB PO SCH (09:00)
[2022-07-30] MEDS: MAGNESIUM OXIDE 400MG TAB (MAG-OX) PO SCH (09:00)
[2022-07-30] MEDS: DOXYCYCLINE HYCLATE 100MG TABLET PO SCH ×2 (09:00→20:07)
[2022-07-30] MEDS: METOPROLOL TART 25 MG TABLET PO SCH ×2 (09:00→20:07)
[2022-07-30] MEDS: TAMSULOSIN 0.4 MG CAP PO SCH (09:00)
[2022-07-30] MEDS: ASPIRIN 81MG ENTERIC TABLET PO SCH (09:00)
[2022-07-30 14:00] VITALS: BP 127/62
[2022-07-30 20:00] VITALS: BP 120/58
[2022-07-30] MEDS: SENNA 8.6 MG TAB (SENOKOT) PO SCH (20:07)
[2022-07-31] MEDS: SODIUM CHLORIDE HYPERTONIC 3% 15ML NEB SOL INH SCH ×3 (00:21→07:48)
[2022-07-31 05:24] VITALS: BP 140/65
[2022-07-31 05:47] VITALS: BP 140/65
[2022-07-31] MEDS: LEVOTHYROXINE 75MCG TABLET (0.075MG) PO SCH (05:47)
[2022-07-31] MEDS: **hydrALAZINE HCL** 25 MG TAB PO SCH (05:47)
[2022-07-31] MEDS: DOCUSATE SODIUM 100MG CAPSULE PO SCH (07:15)
[2022-07-31] MEDS: TIOTROPIUM INHALER/CAPSULE (SPIRIVA) INH SCH (07:48)
[2022-07-31] MEDS: FLUTICASONE HFA 220 MCG 12 GM INHALER (FLOVENT) INH SCH (07:48)
[2022-07-31] MEDS: COMBIVENT RESPIMAT 100-20MCG INHALER 4GM INH SCH (07:48)
[2022-07-31 08:04] VITALS: BP 126/58
[2022-07-31 09:02] LABS: ABG BASE EXCESS -2.8 (-2.0-2.0); ABG HCO3 19.9 MEQ/L (22.0-26.0); ABG O2 SATURATION 96.4 % (95.0-99.0); ABG PARTIAL PRESSURE CO2 28.1 mmHg (35.0-45.0); ABG PARTIAL PRESSURE O2 83.2 mmHg (75.0-100.0); ABG STANDARD HCO3 22.1 MEQ/L (22.0-26.0); ABG TOTAL CO2 20.7 MEQ/L (23.0-31.0); ABG pH (ARTERIAL) 7.467 UNITS (7.350-7.450)
[2022-07-31 09:27] VITALS: BP 151/70
[2022-07-31 10:03] LABS: HEMATOCRIT 32.3 % (42.0-52.0); HEMOGLOBIN 10.3 g/dl (13.5-17.5); MEAN CORPUSCULAR HEMOGLOBIN 26.3 pg (27.0-33.0); MEAN CORPUSCULAR HGB CONC 31.9 g/dl (32.0-36.5); MEAN CORPUSCULAR VOLUME 82.6 fl (80.0-96.0); PLATELET COUNT, AUTOMATED 147 10^3/uL (150-450); RED BLOOD COUNT 3.91 10^6/uL (4.30-6.10); WHITE BLOOD COUNT 6.4 10^3/uL (4.0-10.0)
[2022-07-31 10:36] LABS: BLOOD UREA NITROGEN 48 MG/DL (9-23); CALCIUM LEVEL 8.3 MG/DL (8.3-10.6); CARBON DIOXIDE LEVEL 25 MMOL/L (20-31); CHLORIDE LEVEL 108 MMOL/L (98-107); CREATININE FOR GFR 0.74 MG/DL (0.70-1.30); GLOMERULAR FILTRATION RATE > 60.0 (>35); GLUCOSE, FASTING 97 MG/DL (74-106); POTASSIUM SERUM 3.8 MMOL/L (3.5-5.1); SODIUM LEVEL 139 MMOL/L (136-145)
[2022-07-31 10:50] LABS: ATYPICAL LYMPH 2 % (0-5); EOSINOPHILS 2 % (0-3); LYMPHOCYTES 18 % (16-44); MONOCYTES 18 % (0-5); NEUTROPHILS 60 % (28-66); PLATELET ESTIMATE NORMAL (NORMAL); POIKILOCYTOSIS 1+
[2022-07-31 10:51] LABS: ANISOCYTOSIS 1+; POLYCHROMASIA 1+
[2022-07-31] MEDS ORDERED: CEFEPIME HCL 2 GM in D5W MINI-BAG PLUS 50 ML IV SCH (11:00)
[2022-07-31 16:10] LABS: BODY FLUID CULTURE Not indicated. (.); LEGIONELLA ANTIGEN URINE Negative (Negative); ORGANISM ID Not indicated. (.); SPECIMEN SOURCE Urine (.); URINE STREP PNEUMONIAE ANTIGEN Negative (Negative)
== END 2022-07-31 09:00 | disposition short-term general hospital (02) | DRG 947 ==
LOC: M PM&R 15:25 → M PCU 07-31 09:20 → M PM&R 07-31 09:20
PROVIDERS: ADMIT Physical Medicine & Rehabilitation; ATTEND Physical Medicine & Rehabilitation
PROC: B246ZZZ Ultrasonography of Right and Left Heart (ICD-10-PCS; principal; 2022-07-29)
DX: R53.1 Weakness (principal); J18.9 Pneumonia, unspecified organism; J96.21 Acute and chronic respiratory failure with hypoxia; C79.51 Secondary malignant neoplasm of bone; C34.92 Malignant neoplasm of unspecified part of left bronchus or lung; C78.7 Secondary malignant neoplasm of liver and intrahepatic bile duct; C79.72 Secondary malignant neoplasm of left adrenal gland; M48.56XA Collapsed vertebra, not elsewhere classified, lumbar region, initial encounter for fracture; J44.0 Chronic obstructive pulmonary disease with (acute) lower respiratory infection; R64 Cachexia; I24.8 Other forms of acute ischemic heart disease; R26.89 Other abnormalities of gait and mobility; N40.0 Benign prostatic hyperplasia without lower urinary tract symptoms; E78.5 Hyperlipidemia, unspecified; I10 Essential (primary) hypertension; N32.9 Bladder disorder, unspecified; Z99.81 Dependence on supplemental oxygen; Z87.891 Personal history of nicotine dependence; E03.9 Hypothyroidism, unspecified; Z74.09 Other reduced mobility; Z74.1 Need for assistance with personal care; Z79.82 Long term (current) use of aspirin; Z79.890 Hormone replacement therapy; Z79.1 Long term (current) use of non-steroidal anti-inflammatories (NSAID); Z79.899 Other long term (current) drug therapy; Z88.7 Allergy status to serum and vaccine

== ENCOUNTER 2022-07-31 09:02 | Inpatient (IN) | payer MEDICARE, OTHER ==
[~2022-07-31] VITALS: Ht 172.7 cm; Wt 56.3 kg
[2022-07-31] MEDS: ASPIRIN 81MG ENTERIC TABLET PO SCH (09:00)
[2022-07-31] MEDS: EZETIMIBE 10MG TABLET (ZETIA) PO SCH (09:00)
[2022-07-31] MEDS: TAMSULOSIN 0.4 MG CAP PO SCH (09:00)
[2022-07-31] MEDS: OMEPRAZOLE 20MG CAP PO SCH (09:00)
[2022-07-31] MEDS ORDERED: ALBUTEROL SULFATE 2.5MG/0.5ML INH NEB SOLN NEB PRN (09:10)
[2022-07-31 09:37] VITALS: BP 151/70
[2022-07-31] MEDS ORDERED: FUROSEMIDE 40MG/4ML VIAL IV ONE (10:00)
[2022-07-31] MEDS: SUCRALFATE SUSP 1GM/10ML UD PO SCH ×2 (12:00→17:30)
[2022-07-31 12:39] VITALS: BP 122/60
[2022-07-31] MEDS: IPRATROPIUM 0.5MG/ALBUTEROL 2.5MG INH SOL UD 3ML (DUONEB) NEB SCH ×2 (13:18→19:21)
[2022-07-31 14:58] LABS: APPEARANCE, BODY FLUID CLEAR (CLEAR); PLEURAL FL COLOR PALE YELLOW (COLORLESS); SOURCE, BODY FLUID PLEURAL
[2022-07-31 15:21] LABS: PH BODY FLUID > 7.800 UNITS (NOT ESTABLISHED); SOURCE, BODY FLUID pH PLEURAL
[2022-07-31 16:14] LABS: SOURCE, BODY FLUID GLUCOSE PLEURAL
[2022-07-31 16:15] LABS: LDH, BODY FLUID 102 U/L (NOT ESTABLISHED); SOURCE, BODY FLUID LDH PLEURAL
[2022-07-31 16:16] LABS: AMYLASE, BODY FLUID < 20 U/L (NOT ESTABLISHED); SOURCE, BODY FLUID AMYLASE PLEURAL
[2022-07-31 16:19] VITALS: BP 134/60
[2022-07-31 16:47] LABS: SOURCE, BODY FLUID TOT PROTEIN PLEURAL; TOTAL PROTEIN, BODY FLUID < 2.0 G/DL (NOT ESTABLISHED)
[2022-07-31] MEDS: FLUTICASONE HFA 220 MCG 12 GM INHALER (FLOVENT) INH SCH (19:21)
[2022-07-31 20:56] VITALS: BP 133/63
[2022-07-31] MEDS ORDERED: PRAVASTATIN 20 MG TAB PO SCH (21:00)
[2022-07-31] MEDS ORDERED: ONDANSETRON 4MG 2ML VIAL IV ONE (22:15)
[2022-07-31 23:46] VITALS: BP 141/60
[2022-08-01] MEDS: IPRATROPIUM 0.5MG/ALBUTEROL 2.5MG INH SOL UD 3ML (DUONEB) NEB SCH ×3 (02:00→13:15)
[2022-08-01 04:57] VITALS: BP 130/65
[2022-08-01] MEDS ORDERED: LEVOTHYROXINE 75MCG TABLET (0.075MG) PO SCH (06:00)
[2022-08-01 06:28] LABS: HEMOGLOBIN 10.1 g/dl (13.5-17.5); MEAN CORPUSCULAR HGB CONC 31.6 g/dl (32.0-36.5); MEAN CORPUSCULAR VOLUME 82.5 fl (80.0-96.0); PLATELET COUNT, AUTOMATED 155 10^3/uL (150-450); RED BLOOD COUNT 3.88 10^6/uL (4.30-6.10); WHITE BLOOD COUNT 10.2 10^3/uL (4.0-10.0)
[2022-08-01 07:13] LABS: BASOPHILS 1 % (0-1); LYMPHOCYTES 11 % (16-44); METAMYELOCYTES 3 % (0-0); MONOCYTES 4 % (0-5); MYELOCYTES 6 % (0-0); NEUTROPHILS 72 % (28-66); NUCLEATED RED BLOOD CELL 1 % (0-0); PLATELET ESTIMATE NORMAL (NORMAL)
[2022-08-01 07:14] LABS: ANISOCYTOSIS 1+; OVALOCYTES 1+; SCHISTOCYTES 1+
[2022-08-01 07:33] LABS: BLOOD UREA NITROGEN 49 MG/DL (9-23); CALCIUM LEVEL 7.6 MG/DL (8.3-10.6); CARBON DIOXIDE LEVEL 24 MMOL/L (20-31); CHLORIDE LEVEL 109 MMOL/L (98-107); CREATININE FOR GFR 0.83 MG/DL (0.70-1.30); GLOMERULAR FILTRATION RATE > 60.0 (>35); GLUCOSE, FASTING 114 MG/DL (74-106); POTASSIUM SERUM 3.8 MMOL/L (3.5-5.1); SODIUM LEVEL 143 MMOL/L (136-145)
[2022-08-01] MEDS: FLUTICASONE HFA 220 MCG 12 GM INHALER (FLOVENT) INH SCH (07:41)
[2022-08-01 08:00] VITALS: BP 166/62
[2022-08-01] MEDS ORDERED: TIOTROPIUM INHALER/CAPSULE (SPIRIVA) INH SCH (08:00)
[2022-08-01] MEDS ORDERED: methylPREDNISolone 40MG 1ML VIAL IV SCH (08:00)
[2022-08-01] MEDS ORDERED: PIPERACILLIN/TAZOBACTAM SOD 3.375 GM in D5W MINI-BAG PLUS 50 ML IV SCH (09:05)
[2022-08-01] MEDS: ASPIRIN 81MG ENTERIC TABLET PO SCH (09:06)
[2022-08-01] MEDS: OMEPRAZOLE 20MG CAP PO SCH (09:06)
[2022-08-01] MEDS: TAMSULOSIN 0.4 MG CAP PO SCH (09:06)
[2022-08-01] MEDS: EZETIMIBE 10MG TABLET (ZETIA) PO SCH (09:06)
[2022-08-01] MEDS: SUCRALFATE SUSP 1GM/10ML UD PO SCH (09:06)
[2022-08-01] MEDS ORDERED: PIPERACILLIN/TAZOBACTAM SOD 4.5 GM in D5W MINI-BAG PLUS 50 ML IV SCH (10:00)
[2022-08-01 11:37] VITALS: BP 129/65
[2022-08-01 13:15] VITALS: BP 108/63
[2022-08-01 13:28] LABS: PH BODY FLUID 7.615 UNITS (NOT ESTABLISHED); SOURCE, BODY FLUID pH PLEURAL
[2022-08-01 13:31] LABS: APPEARANCE, BODY FLUID CLEAR (CLEAR); PLEURAL FL COLOR YELLOW (COLORLESS); SOURCE, BODY FLUID PLEURAL
[2022-08-01] MEDS ORDERED: SCOPOLAMINE 1MG TRANSDERMAL PATCH TOP PRN (13:35)
[2022-08-01 13:46] LABS: SOURCE, BODY FLUID GLUCOSE PLEURAL
[2022-08-01 13:47] LABS: LDH, BODY FLUID 151 U/L (NOT ESTABLISHED); SOURCE, BODY FLUID LDH PLEURAL
[2022-08-01 13:48] LABS: AMYLASE, BODY FLUID < 20 U/L (NOT ESTABLISHED); SOURCE, BODY FLUID AMYLASE PLEURAL; SOURCE, BODY FLUID TOT PROTEIN PLEURAL; TOTAL PROTEIN, BODY FLUID < 2.0 G/DL (NOT ESTABLISHED)
[2022-08-02] MEDS: LORazepam 1 MG TAB PO PRN ×3 (10:27→21:38)
[2022-08-02] MEDS: MORPHINE 10MG/0.5ML ORAL CONCENTRATE SOLUTION U/D SL PRN ×3 (10:34→21:37)
[2022-08-03] MEDS: MORPHINE 10MG/0.5ML ORAL CONCENTRATE SOLUTION U/D SL PRN ×7 (00:16→14:48)
[2022-08-03] MEDS: LORazepam 1 MG TAB PO PRN ×7 (00:17→14:48)
[2022-08-03] MEDS ORDERED: LORazepam 2 MG/ML 1ML VIAL IV PRN (15:15)
[2022-08-03] MEDS ORDERED: MORPHINE 2 MG/ML 1ML VIAL IV ONE (15:15)
[2022-08-03] MEDS ORDERED: MORPHINE SULF IN 0.9% NACL 100 MG in IV 1 EA IV SCH ×2 (17:00)
== END 2022-08-04 13:40 | disposition expired | DRG 180 ==
LOC: M PCU 09:20 → M MS5PR 08-02 16:17
PROVIDERS: ADMIT Internal Medicine Nephrology; ATTEND Internal Medicine Nephrology
PROC: 0W9B3ZZ Drainage of Left Pleural Cavity, Percutaneous Approach (ICD-10-PCS; principal; 2022-07-31 15:00)
PROC: 0W993ZZ Drainage of Right Pleural Cavity, Percutaneous Approach (ICD-10-PCS; 2022-08-01)
DX: C34.32 Malignant neoplasm of lower lobe, left bronchus or lung (principal); J18.9 Pneumonia, unspecified organism; J96.01 Acute respiratory failure with hypoxia; E43 Unspecified severe protein-calorie malnutrition; J90 Pleural effusion, not elsewhere classified; J44.1 Chronic obstructive pulmonary disease with (acute) exacerbation; J44.0 Chronic obstructive pulmonary disease with (acute) lower respiratory infection; C78.01 Secondary malignant neoplasm of right lung; C78.7 Secondary malignant neoplasm of liver and intrahepatic bile duct; C79.51 Secondary malignant neoplasm of bone; C77.0 Secondary and unspecified malignant neoplasm of lymph nodes of head, face and neck; C79.72 Secondary malignant neoplasm of left adrenal gland; M84.48XA Pathological fracture, other site, initial encounter for fracture; J91.0 Malignant pleural effusion; D70.1 Agranulocytosis secondary to cancer chemotherapy; Z66 Do not resuscitate; Z92.3 Personal history of irradiation; Z92.21 Personal history of antineoplastic chemotherapy; I73.9 Peripheral vascular disease, unspecified; Z95.828 Presence of other vascular implants and grafts; Z87.891 Personal history of nicotine dependence; E03.9 Hypothyroidism, unspecified; Z79.890 Hormone replacement therapy; Z79.82 Long term (current) use of aspirin; Z79.899 Other long term (current) drug therapy; Z88.8 Allergy status to other drugs, medicaments and biological substances